=== PATIENT | female | born 1985 | race Caucasian/White ===

== ENCOUNTER → 2016-08-18 | Outpatient (CLI) | payer OTHER ==
[~2016-08-18] MED LIST: ASP81CT PO; FRS325T PO; IBP600T1 PO; NITR100C3 PO; NYST15CR3 TP; OXYC-12 PO; PREN1TAB39 PO; SULF-222 PO; SULF1TAB35 PO
--- NOTE | 2016-08-18 17:03 | Diagnostic Imaging Report ---
INDICATION: Evaluation for IUD. EXAMINATION: Pelvic ultrasound. FINDINGS: Uterus measures 11.0 x 5.9 x 5.7 cm. There is an IUD in the uterine cavity in normal position. There are several nabothian cysts present. The right ovary measures 4.4 x 2.1 x 4.2 cm with two cysts, the largest measuring 2.4 cm. The left ovary measures 4.3 x 3.6 x 3.9 cm. There is a 3.8 cm cyst on the left. There is normal blood flow to both ovaries. No free fluid. IMPRESSION: 1. IUD is in good position in the uterine cavity. 2. Benign-appearing cyst noted in the ovaries, bilaterally. Dictated by: Dictated on workstation # [id number]
== END ==
LOC: RAD 13:34
PROVIDERS: ATTEND Nurse Practitioner Family
DX: T83.9XXA Unspecified complication of genitourinary prosthetic device, implant and graft, initial encounter (principal)
CPT/HCPCS: 76830; 76856

== ENCOUNTER → 2017-12-26 | Outpatient (CLI) | payer MEDICAID ==
--- NOTE | 2017-12-26 17:21 | Diagnostic Imaging Report ---
INDICATION: Supervision of high-risk , twins. TECHNIQUE: Multiple real-time grayscale images were obtained over the gravid uterus. COMPARISON: 10/12/2017 FINDINGS: There is a twin . Baby B is in cephalic presentation. The placenta is posterior, and otherwise unremarkable. heart rate is 144 bpm. Amniotic fluid is subjectively normal. The maternal adnexa is not well seen. The bladder, stomach, ventricles and cisterna magna, three-vessel cord, and cord insertion are seen. The kidneys, four-chamber heart, and spine are not well seen. Biometrical measurements are as follows: Biparietal 4.39 cm, age 19 weeks 2 days. Head circumference 16.46 cm, age 19 weeks 2 days. Abdominal circumference 13.86 cm, age 19 weeks 2 days. Femur length 3.17 cm, age 19 weeks 6 days. Sonographic estimate age: 19 weeks 3 days. Sonographic estimated date of delivery: 05/19/18. Estimated Weight: 296 gm (+/- 43 gm). LMP percentile: 59%. heart rate: 144 beats per minute. number: 2 of 2. IMPRESSION: Twin , with baby B measuring at 19 weeks and 3 days, which is within range of the clinical dates. heart rate and amniotic fluid appears normal. Multiple structures are not well seen on the anatomic survey, as described above. Dictated by: Dictated on workstation # [id number]
--- NOTE | 2017-12-26 17:23 | Diagnostic Imaging Report ---
INDICATION: Twin , supervision of high risk . TECHNIQUE: Multiple real-time grayscale images were obtained over the gravid uterus. COMPARISON: 10/12/2017 FINDINGS: Twin intrauterine diamniotic dichorionic is seen. Baby A is in transverse position. The placenta is posterior. No retroplacental hemorrhage is seen. The stomach is seen. The four-chamber heart is not well seen. The heart rate is 161 bpm. The bladder, three-vessel cord, and cord insertion are seen. The kidneys, intracranial structures, and spine are not well seen. The amniotic fluid appears subjectively normal. The maternal adnexa was not seen. Biometrical measurements for baby A are as follows: Biparietal 4.38 cm, age 19 weeks 2 days. Head circumference 16.69 cm, age 19 weeks 3 days. Abdominal circumference 13.87 cm, age 19 weeks 2 days. Femur length 3.62 cm, age 21 weeks 4 days. Sonographic estimate age: 20 weeks 0 days. Sonographic estimated date of delivery: 05/15/18. Estimated Weight: 337 gm (+/- 49 gm). LMP percentile: 91%. heart rate: 161 beats per minute. number: 1 of 2. IMPRESSION: Twin live intrauterine . Baby A is measuring at 20 weeks and 0 days, which is within range of clinical dates. The kidneys, intracranial structures, spine, and four-chamber heart are not well seen. Dictated by: Dictated on workstation # [id number]
== END ==
LOC: RAD 16:04
PROVIDERS: ATTEND Family Medicine
DX: O09.892 Supervision of other high risk pregnancies, second trimester (principal); Z3A.19 19 weeks gestation of pregnancy
CPT/HCPCS: 76805; 76810

== ENCOUNTER 2022-03-31 07:55 | Emergency (ER) | payer MEDICAID ==
[~2022-03-31] VITALS: Ht 177 cm; Wt 138.2 kg
[~2022-03-31 07:55] MED LIST changes: -SULF1TAB35 PO; +SULF1TAB38 PO
--- NOTE | 2022-03-31 08:24 | ED GI ---
General Chief Complaint: Abdominal/GI Problems Stated Complaint: STOMACH ILLNESS|RT SIDE PAIN Nursing Triage Note: ARRIVED VIA AMB TO ROOM 05 WITH COMPLAINTS OF ABD CRAMPING, DIARRHEA, FEVER, HEADACHE, AND RIGHT SIDED PAIN X5-6 DAYS. WAS SEEN AT [facility] YESTERDAY. Source of Information: Patient Exam Limitations: No Limitations History of Present Illness Date Seen by Provider: Mar 31, 2022 Time Seen by Provider: 08:10 Initial Comments Patient is a 37-year-old female who presents to the emergency department today with a chief complaint of headache, intermittent fever, abdominal cramping, diarrhea generalized malaise and lightheadedness when she moves around. Symptom onset of diarrhea approximately 5 days ago. She was seen at [facility] a couple of days ago and told not to take any medications for her symptoms. She has not even taken Tylenol or ibuprofen for the headache. She woke up this morning and was nauseated. She already has had 3 episodes of diarrhea since getting out of bed at 530. She denies blood in her stool. She did wake up nauseous for the first time this morning. No vomiting. She has never had symptoms last this long before. She denies recent travel or antibiotic use. No sick children at home. No new or unusual foods. She has [place] water with filters in her fridge. Patient states she only had diarrhea about 3 or 4 times yesterday and thought she was getting better until she woke up this morning. 2 prior C-sections on her abdomen with fallopian tube removal. No other abdominal surgeries. Points to the right flank as the source of her pain this morning. It is nonradiating. Currently on her menstrual cycle. No dysuria, urgency or frequency All other review systems reviewed and negative except as stated Timing/Duration: 5-6 Days Severity/Quality: Moderate, Cramping Location: Flank (right) Radiation: No Radiation Activities at Onset: None Associated Symptoms: Weakness, Other (LH when standing) Allergies and Home Medications Allergies Coded Allergies: acetaminophen (Verified Allergy, Unknown, ITCHING, 03/31/22) oxycodone (Verified Allergy, Unknown, ITCHING, 03/31/22) Patient Home Medication List Home Medication List Reviewed: Yes Ferrous Sulfate (Iron) 325 Mg Tablet, 1 TAB PO BID, (Reported) Entered as Reported by: JESSIE HOLLAND on 02/07/122112 Ibuprofen (Motrin) 600 Mg Tab, 600 MG PO Q6HR, (Reported) Entered as Reported by: CAREY CASTILLO on 03/17/12 1014 Ondansetron (Ondansetron Odt) 4 Mg Tab.rapdis, 4 MG SL Q8H PRN for NAUSEA/VOMITING Prescribed by: SHAHNAZ DAVEY on 03/31/22 1005 Oxycodone Hcl/Acetaminophen (Percocet 5-325 Mg Tablet) 1 Each Tablet, 1-2 TAB PO Q4H, (Reported) Entered as Reported by: CAREY CASTILLO on 03/17/12 1015 Vits W-Ca,Fe,Fa(<1MG) () 1 Each Tablet, 1 EACH PO DAILY, (Reported) Entered as Reported by: MICHAEL MARIE on 10/24/11 2209 Sulfamethoxazole/Trimethoprim (Sulfamethoxazole-Tmp Ds Tablet) 1 Each Tablet, 1 EACH PO BID Prescribed by: LUPE WEBB on 04/24/15 0927 Sulfamethoxazole/Trimethoprim (Bactrim Ds Tablet) 1 Each Tablet, 1 EACH PO BID Prescribed by: LISA DONALD on 09/05/15 1429 Review of Systems Review of Systems Constitutional: see HPI, fever, malaise EENTM: No Symptoms Reported Respiratory: No Symptoms Reported Cardiovascular: No Symptoms Reported Gastrointestinal: Abdominal Pain, Diarrhea, Nausea Genitourinary: No Symptoms Reported Musculoskeletal: no symptoms reported Psychiatric/Neurological: No Symptoms Reported All Other Systems Reviewed Negative Unless Noted: Yes Past Tdbfidw-Tzljne-Pzgyfv Hx Patient Social History Tobacco Use?: No Substance use?: No Alcohol Use?: No Immunizations Up To Date Tetanus Booster (TDap): Unknown Third COVID19 Vaccination Date: UNKNOWN 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 0.8oz. [id number]; 44.00 BMI Method:Stated General Appearance: WD/WN, no apparent distress HEENT: PERRL/EOMI Neck: supple Respiratory: lungs clear, normal breath sounds, no respiratory distress, no accessory muscle use Cardiovascular: regular rate, rhythm Gastrointestinal: non tender, soft, abnormal bowel sounds (hypoactive) Extremities: normal range of motion Back: no CVA tenderness Neurologic/Psychiatric: alert, normal mood/affect, oriented x 3 Skin: normal color, warm/dry Progress/Results/Core Measures Results/Orders Lab Results Laboratory Tests Test 03/31/22 08:30 Range/Units Sodium Level 139 135-145 MMOL/L Potassium Level 4.2 3.6-5.0 MMOL/L Chloride Level 107 98-107 MMOL/L Carbon Dioxide Level 22 21-32 MMOL/L Anion Gap 10 5-14 MMOL/L Blood Urea Nitrogen 9 7-18 MG/DL Creatinine 0.78 0.60-1.30 MG/DL Estimat Glomerular Filtration Rate 99 BUN/Creatinine Ratio 12 Glucose Level 93 70-105 MG/DL Calcium Level 8.8 8.5-10.1 MG/DL My Orders Orders - SHAHNAZ DAVEY MD Ed Iv/Invasive Line Start (03/31/22 08:24) Basic Metabolic Panel (03/31/22 08:24) Lactated Ringers (Lr 1000 Ml Iv Solution (03/31/22 08:30) Ketorolac Injection (Toradol Injection) (03/31/22 08:30) Ondansetron Injection (Zofran Injectio (03/31/22 08:30) Medications Given in ED Vital Signs/I&O 03/31/22 03/31/22 08:05 10:12 Temp 36.4 Pulse 69 61 Resp 16 16 B/P (MAP) 137/86 (103) 120/73 Pulse Ox 98 100 O2 Delivery Room Air Room Air Blood Pressure Mean: 103 Progress Progress Note : Time: 09:57 Progress Note Patient has been up and ambulatory to the bathroom, states that she feels MUCH better after IV fluids. Has been unable to provide a stool specimen. Basic metabolic panel reviewed, completely within normal limits. Vital signs remained stable. She will be sent home with an outpatient order for stool studies. Will advise her of return precautions to include fever, bloody stool. At this point she has no clinical or objective findings indicating that we need to avoid Imodium. I told her that she can take it as long as she is not passing blood or having a persistent fever. No concerns for acute intra-abdominal process, significant infection, bowel obstruction, significant volume depletion. Exam is benign. Patient is comfortable with plan of care. All questions are sought and answered. Patient is stable for discharge \\ Departure Impression Primary Impression: Diarrhea Qualified Codes: R19.7 - Diarrhea, unspecified Disposition: 01 HOME, SELF-CARE Condition: Improved Departure-Patient Inst. Decision time for Depature: 09:59 Referrals: [facility] (PCP/Family) Primary Care Physician Patient Instructions: Diarrhea, Adult ED Add. Discharge Instructions: Drink plenty of fluids to stay well-hydrated. As long as you do not have a fever and you are not passing blood in her stool you can take [id number] Imodium to slow down diarrhea. Please follow packaging instructions. I have given you an order for an outpatient stool sample. As soon as you can obtain this please bring it back to the hospital for testing. We will call you if there are any positive findings on the stool culture. Zofran (ondansetron) 4mg dissolving tablets every 6-8 hours as needed for nausea. You can take [id number] ibuprofen 3 tablets which is 600 mg every 6 hours as needed for abdominal cramping. Always take ibuprofen with food. Please follow-up with [facility] next week. Return to the emergency department for any new, concerning or emergent compla ints. Scripts Ondansetron (Ondansetron Odt) 4 Mg Tab.rapdis 4 MG SL Q8H PRN for NAUSEA/VOMITING, #20 TAB Prov: SHAHNAZ DAVEY MD 03/31/22 Work/School Note: Work Release Form Date Seen in the Emergency Department: Mar 31, 2022 Return to Work: Apr 03, 2022 Copy Copies To 1: SHAGGY TAYLOR KATHRYN M MD Mar 31, 2022 08:24
[2022-03-31] MEDS ORDERED: ONDANSETRON 4 MG/2 ML (SDV) Z0FRAN IVP ONE (08:30)
[2022-03-31] MEDS ORDERED: KETOROLAC 15 MG/ML VIAL IVP ONE (08:30)
[2022-03-31] MEDS ORDERED: LACTATED RINGERS 1,000 ML IV SCH (08:30)
[2022-03-31 09:06] LABS: POTASSIUM 4.2 MMOL/L (3.6-5.0)
[2022-03-31 09:07] LABS: CALCIUM 8.8 MG/DL (8.5-10.1)
[2022-03-31 09:12] LABS: CREATININE SERUM 0.78 MG/DL (0.60-1.30)
[2022-03-31] MEDS ORDERED: ONDA4TAB11 SL (10:05)
[2022-03-31 10:12] VITALS: BP 120/73
== END 2022-03-31 10:12 | disposition home or self-care (01) ==
LOC: EDUNIT# 07:55 → ER 07:59
DX: R19.7 Diarrhea, unspecified (principal); R50.9 Fever, unspecified; R10.9 Unspecified abdominal pain; R11.0 Nausea; Z88.6 Allergy status to analgesic agent; Z88.5 Allergy status to narcotic agent
CPT/HCPCS: 36415; 80048; 99281